=== PATIENT | female | born 1975 | race Caucasian/White ===

== ENCOUNTER 2018-08-09 17:15 | Emergency (ER) | payer MEDICAID ==
[~2018-08-09] VITALS: Ht 162.6 cm; Wt 74.8 kg
--- NOTE | 2018-08-09 18:15 | NUR ---
RECECIVED A 42 Y/O FEMALE PT C/O ABDOMINAL PAIN, 12 LEAD EKG DONE, IV INSERTED IN LT AC G20. BLOOD SAMPLES/ CULTURE TAKEN.
[2018-08-09 18:33] LABS: BASOPHILS % (AUTO) 0.2 % (0.0-2.0); EOSINOPHILS % (AUTO) 0.2 % (0.0-7.0); HEMOGLOBIN 14.5 g/dL (10.9-14.3); LYMPHOCYTES # (AUTO) 0.3 K/uL (20.0-40.0); LYMPHOCYTES % (AUTO) 2.4 % (20.5-51.5); MEAN CORPUSCULAR HEMOGLOBIN 30.9 uug (24.7-32.8); MEAN CORPUSCULAR HGB CONC 34 g/dL (32.3-35.6); MEAN CORPUSCULAR VOLUME 91.6 fL (75.5-95.3); MONOCYTES # (AUTO) 0.4 K/uL (2.0-10.0); NEUTROPHILS # (AUTO) 11.7 K/uL (1.8-8.9); NEUTROPHILS % (AUTO) 94.2 % (38.5-71.5); PLATELET COUNT (AUTO) 315 K/uL (179-408); RED BLOOD CELL COUNT(AUTO) 4.69 MIL/uL (3.63-4.92); WHITE BLOOD COUNT (AUTO) 12.4 K/uL (3.8-11.8)
[2018-08-09 18:51] LABS: CREATININE 0.8 mg/dL (0.6-1.3); POTASSIUM 4.7 mmol/L (3.5-5.1)
[2018-08-09 18:56] LABS: BILIRUBIN,DIRECT 0.1 mg/dL (0.0-0.2); BILIRUBIN,TOTAL 0.5 mg/dL (0.2-1.0); TOTAL PROTEIN, SERUM 7.7 g/dL (6.4-8.2)
--- NOTE | 2018-08-09 19:07 | NUR ---
Assumed care of patient. no acute distress noted. VSS
[2018-08-09] MEDS ORDERED: KETOROLAC TROMETHAMINE 30 MG INJ ONE (19:38)
[2018-08-09] MEDS ORDERED: ONDANSETRON 4 MG/2 ML VIAL ONE (19:38)
[2018-08-09] MEDS ORDERED: PANTOPRAZOLE SODIUM 40 MG VIAL ONE (19:38)
[2018-08-09] MEDS: PANTOPRAZOLE SODIUM 40 MG VIAL IV ONE (19:41)
[2018-08-09] MEDS: ONDANSETRON 4 MG/2 ML VIAL IV ONE (19:41)
[2018-08-09] MEDS: KETOROLAC TROMETHAMINE 30 MG INJ IVP ONE (19:41)
[2018-08-09] MEDS: IV NORMAL SALINE 1000 ML BAG IV ONE (19:44)
[2018-08-09] MEDS ORDERED: MORPHINE SULFATE 4 MG/1 ML DISP.SYRIN ONE (20:25)
[2018-08-09] MEDS: MORPHINE SULFATE 2 MG/1 ML DISP.SYRIN IV ONE (20:27)
--- NOTE | 2018-08-09 20:34 | NUR ---
PATIENT IN BED, NO ACUTE DISTRESS NOTED. VSS. ENDORSES IMPROVEMENT IN ABD PAIN. NO EPISODES OF DIARRHEA SINCE ARRIVAL
--- NOTE | 2018-08-09 20:58 | NUR ---
Patient discharged to home in stable conditon. Written and verbal after care instructions given. Patient verbalizes understanding of instructions. Ambulated from ER with stable gait. Peripheral IV removed prior to d/c. Patient will be driven home by signficant other in private vehicle. Ambulated from ER with stable gait.
[2018-08-09 20:59] VITALS: BP 118/71
== END 2018-08-09 21:00 | disposition home or self-care (01) ==
LOC: ER 17:18
DX: A08.4 Viral intestinal infection, unspecified (principal); F17.200 Nicotine dependence, unspecified, uncomplicated; Z59.0 Homelessness
CPT/HCPCS: 36415; 71045; 80048; 80076; 83605; 84484; 84702; 85025; 85730; 87040 ×2; 87400; 93005; 96361; 96374; 96375; 99284; C9113; J1885; J2270; J2405; 70030-TC; A4663; J7030

== ENCOUNTER 2019-05-27 07:00 | Emergency (ER) | payer MEDICAID ==
[~2019-05-27] VITALS: Ht 162.6 cm; Wt 72.6 kg
[2019-05-27] MEDS ORDERED: IBUPROFEN 600 MG TABLET PO ONE (07:30)
[2019-05-27] MEDS ORDERED: AMOXicillin 250 MG CAPSULE PO ONE (07:30)
[2019-05-27] MEDS ORDERED: HYDROCODONE/APAP 5-325MG TABLET PO ONE (07:30)
[2019-05-27] MEDS ORDERED: AMOXicillin 250 MG CAPSULE ONE (07:32)
[2019-05-27] MEDS ORDERED: HYDROCODONE/APAP 5-325MG TABLET ONE (07:33)
[2019-05-27] MEDS ORDERED: IBUPROFEN 600 MG TABLET ONE (07:33)
--- NOTE | 2019-05-27 07:34 | NUR ---
PT WAS EVALUATED BY DR DOVER. PT WAS MEDICATED ACCORDING TO ER MD ORDERS. PT TOLERATED TO MEDICATION WITHOUT COMPLICATIONS. PT WAS D/C TO HOME. D/C INSTRUCTIONS GIVEN TO THE PT.
[2019-05-27 07:35] VITALS: BP 138/77
== END 2019-05-27 07:37 | disposition home or self-care (01) ==
LOC: ER 07:04
DX: K05.10 Chronic gingivitis, plaque induced (principal); F17.200 Nicotine dependence, unspecified, uncomplicated
CPT/HCPCS: A4663